=== PATIENT | male | born 1965 | race Caucasian/White ===

== ENCOUNTER 2024-06-27 10:09 | Emergency (ER) | payer OTHER ==
[2024-06-27 10:21] VITALS: BMI 34.7
[2024-06-27] MEDS ORDERED: ACETAMINOPHEN INJECTION 100 ML ONE (11:19)
[2024-06-27] MEDS: SODIUM CHLORIDE 1,000 ML IV STA ×2 (11:32→13:37)
[2024-06-27] MEDS: ACETAMINOPHEN 1000 MG/100 ML BAG IVPB ONE (11:32)
[2024-06-27 11:39] LABS: BASO % 0.2 % (0-2.0); EOS % 0.1 % (0-4.5); HEMATOCRIT 51.4 % (35.4-49); HEMOGLOBIN 16.5 GM/dL (11.7-16.9); LYMPH % 2.4 % (8-40); MCH 26.8 pg (25.7-33.7); MCHC 32.2 g/dl (32.0-35.9); MEAN CELL VOLUME 83.2 fl (80-96); MEAN PLT VOLUME 7.8 fl (7.5-11.1); MONO % 3.6 % (3.8-10.2); NEUT % 93.7 % (42.8-82.8); PLATELET COUNT 295 10^3/uL (134-434); RBC 6.17 M/mm3 (4.00-5.60); RDW 15.9 % (11.9-15.9); WHITE BLOOD COUNT 18.6 K/mm3 (4.0-10.0)
[2024-06-27 11:58] LABS: POTASSIUM 4.3 mmol/L (3.5-5.1)
[2024-06-27 12:01] LABS: ALBUMIN 3.2 g/dl (3.4-5.0); CALCIUM 9.1 mg/dL (8.5-10.1)
[2024-06-27 12:05] VITALS: BP 137/80; TEMP 99.9
[2024-06-27 12:05] LABS: CREATININE 1.3 mg/dL (0.55-1.3)
[2024-06-27 12:06] LABS: BILIRUBIN,TOTAL 0.7 mg/dL (0.2-1); TOT PROT 7.4 g/dl (6.4-8.2)
[2024-06-27 12:28] LABS: ANISOCYTOSIS 0; MACROCYTOSIS 0
[2024-06-27 13:56] LABS: EPI CELLS 0 /uL (0-25.1); HYALINE CASTS 0 /uL (0-3.1); URINE APPEARANCE CLEAR; URINE BACTERIA 0 /uL (0-1359); URINE BILIRUBIN NEGATIVE (NEGATIVE); URINE COLOR YELLOW; URINE GLUCOSE (UA) NEGATIVE (NEGATIVE); URINE KETONE NEGATIVE (NEGATIVE); URINE LEUK ESTERASE NEGATIVE (NEGATIVE); URINE NITRITE NEGATIVE (NEGATIVE); URINE PROTEIN 1+ (NEGATIVE); URINE RBC 6 /uL (0-23.9); URINE UROBILINOGEN 0.2 mg/dL (0.2-1.0); URINE WBC 1 /uL (0-25.8)
[2024-06-27 14:24] VITALS: PULSE 99; RESP 18
[2024-06-27] MEDS ORDERED: AZITHROMYCIN 500 MG TABLET ONE (14:32)
[2024-06-27] MEDS ORDERED: AMOX TR/POT CLAV 875MG/125MG TABLETS (FP) ONE (14:32)
[2024-06-27] MEDS: AZITHROMYCIN 500 MG TABLET PO ONE (14:47)
[2024-06-27] MEDS: AMOX TR/POT CLAV 875MG/125MG TABLETS (FP) PO ONE (14:47)
== END 2024-06-27 14:47 | disposition home or self-care (01) ==
LOC: JER 10:09
PROC: 3E033NZ Introduction of Analgesics, Hypnotics, Sedatives into Peripheral Vein, Percutaneous Approach (ICD-10-PCS; principal; 2024-06-27)
PROC: 3E0337Z Introduction of Electrolytic and Water Balance Substance into Peripheral Vein, Percutaneous Approach (ICD-10-PCS; 2024-06-27)
PROC: 3E0337Z Introduction of Electrolytic and Water Balance Substance into Peripheral Vein, Percutaneous Approach (ICD-10-PCS; 2024-06-27)
DX: J18.9 Pneumonia, unspecified organism (principal); R00.0 Tachycardia, unspecified; R50.9 Fever, unspecified; Z20.822 Contact with and (suspected) exposure to COVID-19
CPT/HCPCS: 0241U-QW; 36415; 71046-TC-FY; 80053; 81003; 84443; 84484; 85025; 87086; 93005; 93010; 99285-25; J0131